=== PATIENT | male | born 1990 | race Caucasian/White ===

== ENCOUNTER 2020-11-29 20:07 | Emergency (ER) | payer OTHER ==
--- NOTE | 2020-11-29 20:44 | ED Physician Documentation ---
History of Present Illness - Stated complaint Stated Complaint: SNEEZING,FACE SWELLING - Chief complaint Chief Complaint: Allergic Rx - History obtained from History obtained from: Patient - History of Present Illness Timing: How many days ago (2) Pain level now: 0 Improved by: nothing Worsened by: no exacerbating factors - Additonal information Additional information: 2 days ago developed sneezing followed by facial swelling and erythema. He notes that he suffers from seasonal allergies but has not had previous symptoms such as these. He also notes that the day of the symptoms, he was in the sun for most of the day. He has been taking 50mg benadryl without noticeable change. Denies lip/throat swelling, denies cough, denies dyspnea. Review of Systems Constitutional: denies: Fever, Chills, Sweats Ears: reports: Reviewed and negative Nose: reports: Reviewed and negative Throat: denies: Sore throat Respiratory: reports: Reviewed and negative Skin: reports: Rash (facial erythema) PD PAST MEDICAL HISTORY - Past Medical History Past Medical History: Yes Other Past Medical History: seasonal allergies - Past Surgical History Past Surgical History: No - Present Medications Home Medications: Ambulatory Orders Medication Instructions Recorded Confirmed predniSONE [Deltasone] 40 mg PO DAILY 3 Days #6 tablet 11/29/20 - Allergies Allergies/Adverse Reactions: Allergies Allergy/AdvReac Type Severity Reaction Status Date / Time No Known Drug Allergies Allergy Verified 11/29/20 20:13 - Social History Does the pt smoke?: Yes Smoking Status: Light tobacco smoker Does the pt drink ETOH?: No Does the pt have substance abuse?: No - Immunizations Immunizations are current?: Yes PD ED PE NORMAL - Vitals Vital signs reviewed: Yes - General General: Alert and oriented X 3, No acute distress, Well developed/nourished - HEENT HEENT: Moist mucous membranes, Pharynx benign (no osmani/intraoral edema; airway is widely patent), Other (generalized, symmetric facial erythema without obvious significant swelling) - Neck Neck: Supple, no meningeal sign - Respiratory Respiratory: No respiratory distress, Clear bilaterally Results - Vitals Vitals: Vital Signs - 24 hr 11/29/20 11/29/20 11/29/20 20:13 20:22 21:11 Temperature 36.8 C 36.8 C 36.7 C Heart Rate 98 98 81 Respiratory 16 16 16 Rate Blood Pressure 160/83 H 160/83 H 150/79 H O2 Saturation 99 99 100 Oxygen O2 Source Room air PD MEDICAL DECISION MAKING - ED course Complexity details: considered differential, d/w patient ED course: exam is not suggestive of infectious process such as cellulitis (entire face involved with periorbital sparing; perfectly symmetric, nontender, not hot to touch) .There is no obvious swelling although patient and spouse note his face appears/feels swollen. That the symptoms were preceded by repeated sneezing makes allergy a possibility, although he says it is minimally pruritic. Advised to continue benadryl 25-50mg PO Q6 hours and prednisone given with rx for same. Also considered sunburn, at the erythema is limited to the face, but also noted, to a lesser extent, on the neck with cutoff where a shirt would cover at the neck. Departure - Departure Disposition: 01 Home, Self Care Clinical Impression: Allergic reaction, Sunburn Condition: Good Instructions: ED Allergic Reaction General Other, ED Burn Sunburn Follow-Up: [facility] [Provider Group] Prescriptions: predniSONE [Deltasone] 40 mg PO DAILY 3 Days #6 tablet Forms: Activity restrictions Discharge Date/Time: 11/29/20 21:11
[2020-11-29] MEDS ORDERED: predniSONE 20 MG TABLET PO STA (20:57)
[2020-11-29 21:12] VITALS: BP 150/79
== END 2020-11-29 21:11 | disposition home or self-care (01) ==
LOC: ED 20:07
DX: L55.9 Sunburn, unspecified (principal); T78.40XA Allergy, unspecified, initial encounter; X58.XXXA Exposure to other specified factors, initial encounter; Z72.0 Tobacco use
CPT/HCPCS: 99282; 99284; J7512

== ENCOUNTER 2021-11-11 10:58 | Emergency (ER) | payer OTHER ==
--- NOTE | 2021-11-11 11:17 | ED Physician Documentation ---
PD HPI URI - Stated complaint Stated Complaint: RASH/THROAT SWOLLEN - History obtained from History obtained from: Patient - History of Present Illness Timing - onset: How many days ago (5-6) Timing duration: Days Timing details: Gradual onset (he noted onset of pruritic spotty rash on legs a week ago, after being in small play pool in backyard. Developed some on arms as well. Not really on trunk. Then developed some hoarseness and scratchy feeling in throat. talked with [facility] and referred to ER to get culture/PCR test obtained) Associated symptoms: Nasal congestion, Sore throat. No: Fever, Chills, Swollen nodes, Dry cough Contributing factors: No: Sick contact, Travel, Immunocompromised Similar symptoms before: Has not had sx before Recently seen: Not recently seen Review of Systems Constitutional: reports: Myalgias. denies: Fever, Chills Eyes: denies: Photophobia Ears: denies: Drainage/discharge Nose: reports: Rhinorrhea / runny nose, Congestion Throat: reports: Sore throat Cardiac: denies: Chest pain / pressure Respiratory: reports: Dyspnea. denies: Cough GI: denies: Abdominal Pain, Nausea, Vomiting, Diarrhea : denies: Dysuria, Frequency, Discharge Skin: reports: Lesions (he has discrete small raised bumps without confluence. Minimally vesicular without pustules.) Musculoskeletal: denies: Neck pain Neurologic: reports: Headache (mild). denies: Generalized weakness PD PAST MEDICAL HISTORY - Past Medical History Cardiovascular: None Respiratory: None Neuro: None Endocrine/Autoimmune: None - Past Surgical History Past Surgical History: No - Present Medications Home Medications: Ambulatory Orders Medication Instructions Recorded Confirmed predniSONE [Deltasone] 40 mg PO DAILY 3 Days #6 tablet 11/29/20 Cetirizine [ZyrTEC] 10 mg PO BID #10 tablet 11/11/21 dexAMETHasone [Decadron] 4 mg PO DAILY #5 tablet 11/11/21 - Allergies Allergies/Adverse Reactions: Allergies Allergy/AdvReac Type Severity Reaction Status Date / Time No Known Drug Allergies Allergy Verified 11/11/21 11:21 - Social History Does the pt smoke?: Yes Smoking Status: Light tobacco smoker Does the pt drink ETOH?: No Does the pt have substance abuse?: No - Immunizations Immunizations are current?: Yes PD ED PE NORMAL - Vitals Vital signs reviewed: Yes - General General: Alert and oriented X 3, No acute distress, Well developed/nourished - HEENT HEENT: Ears normal, Moist mucous membranes, Pharynx benign - Neck Neck: Supple, no meningeal sign, No adenopathy - Cardiac Cardiac: RRR, No murmur - Respiratory Respiratory: Clear bilaterally - Abdomen Abdomen: Soft, Non tender - Derm Derm: Normal color, Warm and dry, Other (perhaps 1-2 dozen spots of redness with 1/2 centimeter diameter, fairly uniform, with several having central excoriations. No current true vesicles nor pustules. 2 spots on back with near appearance of vesicular, but no fluid out when nicked with scalpel tip. got culture from those spots. ) - Neuro Neuro: Alert and oriented X 3, No motor deficit, Normal speech Results - Vitals Vitals: Vital Signs - 24 hr 11/11/21 11:18 Temperature 37.2 C Heart Rate 88 Respiratory 16 Rate Blood Pressure 161/99 H O2 Saturation 100 Oxygen O2 Source Room air PD MEDICAL DECISION MAKING - ED course Complexity details: reviewed results (testing for monkey box through [facility] rtment. I talked with concrete mixing plant laborer about the correct swab to use and such. She brought over the correct ones. Symptoms may be local reaction or allergic instead. Can give steroids and antihistamines for more presumed allergic/environmental. ), considered differential (he had talked with [facility] Department, who had directed him to come to ER for Monkeypox Testing. His red itchy spots look more likely local allergic reacions or bug bites and not pox appearance per se. Yet he does have some URI type symptoms with scratchy throat and some congestion. consider viral. ), d/w patient Departure - Departure Disposition: 01 Home, Self Care Clinical Impression: Throat irritation, Vesicular rash Condition: Stable Record reviewed to determine appropriate education?: Yes Follow-Up: [facility] [Provider Group] Prescriptions: dexAMETHasone [Decadron] 4 mg PO DAILY #5 tablet Cetirizine [ZyrTEC] 10 mg PO BID #10 tablet Comments: The appearance of the spotty rash does seem more likely bug bites or local reactions as there is not a true vesicle or pustule nor erythema related around it. We did obtain the swab tests indicated by the health department and we will send it to them to test for Lyme keep ox as directed. I am not sure how long this will take for results. With other virus type tests of this sort, it is commonly 3 to 5-day process for results. However I cannot vouch for this test in particular. I am sure the health department will be contacting you with results. I do think it is more likely a skin reaction. However for skin reaction or a viral illness, you can still improve on the itching and symptoms with antihistamines and steroid medicines. These would be particularly effective for bug bite reaction type of process. I transmitted prescriptions to [facility] in [place]. Stay in isolation until you hear results from the health department. Return if worsening symptoms overall. Call ahead if you do. Discharge Date/Time: 11/11/21 12:26
[2021-11-11 11:26] VITALS: BP 161/99
[2021-11-11] MEDS ORDERED: CETIRIZINE 10 MG TABLET PO STA (12:01)
[2021-11-11] MEDS ORDERED: DEXAMETHASONE 10 MG/ML VIAL PO STA (12:01)
[2021-11-11] MEDS ORDERED: CHERRY SYRUP 10 ML UDC PO ONE (12:01)
== END 2021-11-11 12:26 | disposition home or self-care (01) ==
LOC: ED 10:58
DX: R21 Rash and other nonspecific skin eruption (principal); R07.0 Pain in throat; F17.200 Nicotine dependence, unspecified, uncomplicated
CPT/HCPCS: 81599; 99283; 99284; A9270

== ENCOUNTER 2023-04-29 01:46 | Emergency (ER) | payer OTHER ==
[2023-04-29 02:10] VITALS: BP 147/81
[2023-04-29] MEDS ORDERED: CHERRY SYRUP 10 ML UDC PO ONE (02:10)
[2023-04-29] MEDS ORDERED: DEXAMETHASONE 10 MG/ML VIAL PO STA (02:10)
--- NOTE | 2023-04-29 02:13 | ED Physician Documentation ---
PD HPI SKIN - Stated complaint Stated Complaint: L HAND INJ - Chief complaint Chief Complaint: Wound - History obtained from History obtained from: Patient - Additional information Additional information: 32-year-old male presents for rash that began earlier today. He got a new forearm tattoo from his usual tattoo parlor and states that he placed his hand down on the armrest after it was cleaned with an unknown agent. He states that he received a tattoo without any issues, however shortly after he went home he began to notice that his forearm was itching and turning red along the area where his forearm had been laying on the armrest. It has become progressively more itchy and red and swollen and he is here today for evaluation. He tried to wash the arm with soap and took 25 mg of Benadryl prior to arrival without improvement in symptoms. Review of Systems Constitutional: denies: Fever, Chills Skin: reports: Rash. denies: Lesions, Abrasion (s), Laceration (s) Musculoskeletal: denies: Neck pain, Back pain, Extremity pain, Joint pain PD PAST MEDICAL HISTORY - Past Medical History Past Medical History: No Cardiovascular: None Respiratory: None Neuro: None Endocrine/Autoimmune: None - Past Surgical History Past Surgical History: No - Present Medications Home Medications: Ambulatory Orders Medication Instructions Recorded Confirmed predniSONE [Deltasone] 40 mg PO DAILY 3 Days #6 tablet 11/29/20 Cetirizine [ZyrTEC] 10 mg PO BID #10 tablet 11/11/21 dexAMETHasone [Decadron] 4 mg PO DAILY #5 tablet 11/11/21 Clobetasol 0.05% Oint [Temovate 1 applic TOP BID #15 gm 04/29/23 0.05% Oint] predniSONE [Deltasone] 20 mg PO DAILY 5 Days #5 tablet 04/29/23 - Allergies Allergies/Adverse Reactions: Allergies Allergy/AdvReac Type Severity Reaction Status Date / Time No Known Drug Allergies Allergy Verified 11/11/21 11:21 - Social History Does the pt smoke?: Yes Smoking Status: Current every day smoker Does the pt drink ETOH?: No Does the pt have substance abuse?: No - Immunizations Immunizations are current?: Yes - POLST Patient has POLST: No PD ED PE NORMAL - Vitals Vital signs reviewed: Yes - General General: Alert and oriented X 3, No acute distress - Derm Derm: Warm and dry, Other (erythematous, raised rash along volar forearm in rectangular pattern. Blotchy erythema slightly proximal along forearm crease) - Extremities Extremities: No deformity, Normal ROM s pain - Neuro Neuro: Alert and oriented X 3, fast food crew lead 2-12 intact, No motor deficit, Normal speech Results - Vitals Vitals: Vital Signs - 24 hr 04/29/23 04/29/23 02:03 02:34 Temperature 37.2 C Heart Rate 81 80 Respiratory 20 18 Rate Blood Pressure 147/81 H O2 Saturation 100 98 Oxygen O2 Source Room air PD Medical Decision Making - ED course Complexity details: reviewed results, considered differential, d/w patient ED course: Well-appearing patient with what appears to be contact dermatitis, possibly from cleaning agent used on the tattoo chair. Patient has no signs or symptoms of anaphylaxis, he is mostly concerned about the intense pruritus of the area and wants to make sure there is no infection. There is no evidence of cellulitis at this time. The tattoo ink itself does not appear to be the source of the allergic outbreak. Patient was counseled on diagnosis, counseled to use gentle soap such as baby soap on the area to avoid irritating the area further. He will be given steroid cream and dose of steroids here for symptoms. He was counseled to try to avoid scratching the area is much as possible. Patient also states that he will reach out to his performing artist if he has any concerns for his tattoo ink. Departure - Departure Disposition: 01 Home, Self Care Clinical Impression: Contact dermatitis Qualifiers: Contact dermatitis type: unspecified Contact dermatitis trigger: other chemical product Qualified Code(s): L25.3 - Unspecified contact dermatitis due to other chemical products Condition: Stable Instructions: ED Dermatitis Contact Prescriptions: predniSONE [Deltasone] 20 mg PO DAILY 5 Days #5 tablet Clobetasol 0.05% Oint [Temovate 0.05% Oint] 1 applic TOP BID #15 gm Comments: Use gentle soaps to clean your arm. You may apply steroid cream to the area for anti-itch relief. The prescribed steroids will also help the irritation and inflammation. You may also take Benadryl at home. Forms: PCP List Discharge Date/Time: 04/29/23 02:34
[2023-04-29 02:37] VITALS: O2SAT 98
[2023-04-29] MEDS ORDERED: HYDROCORTISONE 1% CREAM 28 GM TUBE TOP ONE (03:00)
== END 2023-04-29 02:34 | disposition home or self-care (01) ==
LOC: ED 01:46
DX: L25.3 Unspecified contact dermatitis due to other chemical products (principal); F17.200 Nicotine dependence, unspecified, uncomplicated
CPT/HCPCS: 99282; 99283; A9270